=== PATIENT | male | born 1955 | race Caucasian/White ===

== ENCOUNTER → 2019-04-06 | Outpatient (CLI) | payer OTHER ==
[2016-05-13 11:07] VITALS: BP 114/57
[~2019-04-06] MED LIST: AMIT100T PO; ASPI-630 PO; CIPR500T94 PO; FLUT16SP NS; FLUT1DIS3 IH; GABA300C18 PO; IPRA15SP NS; IPRA4AER IH; META-21 PO; MONT10TA9 PO; NAPR-514 PO; OMEP40CA5 PO; PREG75CA PO; PSEU30TA27 PO; ROFL500T7 PO; TAMS0.4C2 PO; TOPI100T8 PO; TRAM1TAB4 PO
== END | disposition home or self-care (01) ==
LOC: LAB 17:24
PROVIDERS: ATTEND Internal Medicine Pulmonary Disease
DX: J20.8 Acute bronchitis due to other specified organisms (principal)
CPT/HCPCS: 87070; 87205

== ENCOUNTER 2020-04-25 01:07 | Emergency (ER) | payer OTHER ==
[~2020-04-25] VITALS: Ht 182.9 cm; Wt 128.2 kg
[~2020-04-25 01:07] MED LIST changes: +MONT10TA49 PO; -MONT10TA9 PO; +OMEP40CA45 PO; -OMEP40CA5 PO; +PREG-9 PO; -PREG75CA PO
--- NOTE | 2020-04-25 01:42 | PHYS DOC ---
Past Medical History Past Medical History: Asthma, COPD, GERD, Other Additional Past Medical Histor: prostatitis, obese, peripheral neuropathy Past Surgical History: Cholecystectomy, Other Additional Past Surgical Histo: R pneumonectomy Smoking Status: Never Smoker Alcohol Use: None Drug Use: None General Adult EDM: Chief Complaint: ABDOMINAL PAIN HPI: HPI: Patient is a 64 year old male who presents with complaint of left-sided flank pain that started earlier tonight after eating dinner. Patient states that he has been very nauseated and has tried to vomit on several occasions without success. He does indicate that he did have a bowel movement about 2 hours ago that was normal. He states that the pain feels like he either needs to throw up or he needs to move his bowels. He states that currently pain is improved somewhat and its about a 4 out of 10 but when it was at its worst, it was a 6 to a 7 out of 10. [] Review of Systems: Review of Systems: Constitutional: Denies fever or chills. [] Respiratory: Denies cough or shortness of breath. [] Cardiovascular: Denies chest pain or edema. [] GI: Complains of left-sided flank pain with nausea. Denies vomiting or diarrhea. [] Neurologic: Denies headache, focal weakness or sensory changes. [] A full 10 point review of systems has been reviewed and is otherwise negative. Heart Score: Risk Factors: Risk Factors: DM, Current or recent (<one month) smoker, HTN, HLP, family history of CAD, obesity. Risk Scores: Score 0 - 3: 2.5% MACE over next 6 weeks - Discharge Home Score 4 - 6: 20.3% MACE over next 6 weeks - Admit for Clinical Observation Score 7 - 10: 72.7% MACE over next 6 weeks - Early Invasive Strategies Allergies: Allergies: Allergies Coded Allergies Type Severity Reaction Last Updated Verified No Known Drug Allergies 08/29/15 No Physical Exam: PE: Constitutional: Well developed, well nourished, no acute distress, non-toxic appearance. [] HENT: Normocephalic, atraumatic, bilateral external ears normal, oropharynx moist, no oral exudates, nose normal. [] Eyes: PERRLA, EOMI, conjunctiva normal, no discharge. [] Neck: Normal range of motion, no tenderness, supple, no stridor. [] Cardiovascular: Regular rate and rhythm [] Lungs & Thorax: Bilateral breath sounds clear to auscultation [] Abdomen: Bowel sounds normal, soft, with tenderness to palpation in the left flank region. [] Skin: Warm, dry, no erythema, no rash. [] Extremities: No tenderness, no cyanosis, no clubbing, ROM intact. [] Neurologic: Alert and oriented X 3, no focal deficits noted. [] EKG: EKG: [] Radiology/Procedures: Radiology/Procedures: [] Impression: PROCEDURE: CT ABDOMEN PELVIS WO CONTRAST EXAM: CT ABDOMEN/PELVIS WITHOUT CONTRAST. HISTORY: Left flank pain. TECHNIQUE: Computed tomography of the abdomen and pelvis was performed without intravenous contrast. One or more of the following individualized dose reduction techniques were utilized for this examination: 1. Automated exposure control. 2. Adjustment of the mA and/or kV according to patient size. 3. Use of iterative reconstruction technique. COMPARISON: None. FINDINGS: Lung windows through the visualized portions of the bases reveal elevation of the right hemidiaphragm. Pleural thickening and a small pleural effusion are partially visualized in the right base. Right pneumonectomy changes are suspected.. Bone windows reveal no suspicious lesions. Hip osteoarthritis is severe on the left and moderate on the right. The liver is at least mildly enlarged without focal lesions by noncontrast CT. The gallbladder is surgically absent. The spleen, adrenal glands and pancreas are unremarkable without contrast. A left mid ureteral calculus at L5 measures 4 mm. There is perinephric stranding on the left without hydronephrosis. Additional bilateral renal calculi measure up to 8 mm bilaterally. There are no suspicious renal lesions without contrast. The prostate is moderately to severely enlarged at 6.6 cm. Descending colonic diverticulosis is mild. The appendix is not inflamed. There is no small bowel obstruction. A small umbilical hernia contains only fat. There are no pathologically enlarged lymph nodes. IMPRESSION: 1. 4 mm left mid ureteral calculus with left perinephric stranding. 2. Multiple additional bilateral renal calculi measure up to 8 mm. 3. Small umbilical hernia containing only fat. 4. Correlate for right pneumonectomy. Chest radiography could further evaluate if the diagnosis remains unclear. Electronically signed by: Jadon Guo MD (04/25/2020 3:41 AM) [facility] DICTATED and SIGNED BY: HUSSEIN GUO MD DATE: 04/25/20 0346 Course & Med Decision Making: Course & Med Decision Making Pertinent Labs and Imaging studies reviewed. (See chart for details) [] Dragon Disclaimer: Dragon Disclaimer: This electronic medical record was generated, in whole or in part, using a voice recognition dictation system. Departure Departure Impression: Primary Impression: Ureterolithiasis Disposition: HOME, SELF-CARE Condition: STABLE Referrals: ARISTIDES DESIR MD (PCP) Patient Instructions: Kidney Stones CIPRIANO GARVIN Jr. DO April 25, 2020 01:42
[2020-04-25] MEDS ORDERED: fentaNYL PF VIAL 100 MCG/2 ML VIAL IV PRN (01:45)
[2020-04-25] MEDS ORDERED: ONDANSETRON PF 4 MG/2 ML VIAL. IVP ONE (02:00)
[2020-04-25] MEDS ORDERED: IV NORMAL SALINE 1000ML BAG 1,000 ML IV SCH (02:00)
[2020-04-25 02:10] LABS: BILIRUBIN,URINE NEGATIVE (NEG); CLARITY,URINE CLEAR; COLOR,URINE YELLOW; NITRITE,URINE NEGATIVE (NEG); PROTEIN,URINE NEGATIVE (NEG-TRACE); UROBILINOGEN,URINE 0.2 mg/dL (0.2 mg/dL)
[2020-04-25 02:11] LABS: BASO % 0 % (0-3); EOS % 0 % (0-3); HEMATOCRIT 45.4 % (39.0-53.0); HEMOGLOBIN 14.8 g/dL (13.0-17.5); LYMPH # 0.7 x10^3/uL (1.0-4.8); LYMPH % 4 % (24-48); MEAN CORPUSCULAR HEMOGLOBIN 29 pg (25-35); MEAN CORPUSCULAR HGB CONC 33 g/dL (31-37); MEAN CORPUSCULAR VOLUME 88 fL (79-100); MONO # 0.7 x10^3/uL (0.0-1.1); MONO % 4 % (0-9); NEUT # 17.8 x10^3/uL (1.8-7.7); NEUT % 93 % (31-73); PLATELET COUNT 241 x10^3/uL (140-400); RED BLOOD COUNT 5.14 x10^6/uL (4.30-5.70); RED CELL DISTRIBUTION WIDTH 16.1 % (11.5-14.5); WHITE BLOOD COUNT 19.2 x10^3/uL (4.0-11.0)
[2020-04-25 02:20] LABS: CALCIUM 8.6 mg/dL (8.5-10.1); CREATININE 1.5 mg/dL (0.7-1.3); GFR 47.3; POTASSIUM 4.4 mmol/L (3.5-5.1)
[2020-04-25 02:23] LABS: BACTERIA,URINE FEW /HPF (0-FEW); RBC,URINE TNTC /HPF (0-2); SQUAMOUS EPITHELIAL CELL,UR FEW /LPF; TRICHOMONAS,URINE PRESENT
[2020-04-25 02:25] LABS: ALBUMIN 3.4 g/dL (3.4-5.0); ALBUMIN/GLOBULIN RATIO 0.8 (1.0-1.7); TOTAL BILIRUBIN 0.2 mg/dL (0.2-1.0); TOTAL PROTEIN 7.5 g/dL (6.4-8.2)
--- NOTE | 2020-04-25 03:44 | RAD ---
EXAM: CT ABDOMEN/PELVIS WITHOUT CONTRAST. HISTORY: Left flank pain. TECHNIQUE: Computed tomography of the abdomen and pelvis was performed without intravenous contrast. One or more of the following individualized dose reduction techniques were utilized for this examination: 1. Automated exposure control. 2. Adjustment of the mA and/or kV according to patient size. 3. Use of iterative reconstruction technique. COMPARISON: None. FINDINGS: Lung windows through the visualized portions of the bases reveal elevation of the right hemidiaphragm. Pleural thickening and a small pleural effusion are partially visualized in the right base. Right pneumonectomy changes are suspected.. Bone windows reveal no suspicious lesions. Hip osteoarthritis is severe on the left and moderate on the right. The liver is at least mildly enlarged without focal lesions by noncontrast CT. The gallbladder is surgically absent. The spleen, adrenal glands and pancreas are unremarkable without contrast. A left mid ureteral calculus at L5 measures 4 mm. There is perinephric stranding on the left without hydronephrosis. Additional bilateral renal calculi measure up to 8 mm bilaterally. There are no suspicious renal lesions without contrast. The prostate is moderately to severely enlarged at 6.6 cm. Descending colonic diverticulosis is mild. The appendix is not inflamed. There is no small bowel obstruction. A small umbilical hernia contains only fat. There are no pathologically enlarged lymph nodes. IMPRESSION: 1. 4 mm left mid ureteral calculus with left perinephric stranding. 2. Multiple additional bilateral renal calculi measure up to 8 mm. 3. Small umbilical hernia containing only fat. 4. Correlate for right pneumonectomy. Chest radiography could further evaluate if the diagnosis remains unclear. Electronically signed by: Jadon Guo MD (04/25/2020 3:41 AM) [facility]
[2020-04-25 03:53] VITALS: BP 134/65
[2020-04-25] MEDS ORDERED: ONDA4TAB12 PO (03:56)
[2020-04-25] MEDS ORDERED: OXYC1TAB19 PO (03:56)
[2020-04-25 05:26] LABS: % BANDS 15 % (0-9); % LYMPHS 1 % (24-48); % MONOS 1 % (0-10); % SEGS 83 % (35-66)
[2020-04-25 05:27] LABS: PLT ESTIMATE ADEQUATE (ADEQUATE)
== END 2020-04-25 04:00 | disposition home or self-care (01) ==
LOC: ER 01:07
DX: N20.1 Calculus of ureter (principal); K42.9 Umbilical hernia without obstruction or gangrene; K57.30 Diverticulosis of large intestine without perforation or abscess without bleeding; J44.9 Chronic obstructive pulmonary disease, unspecified; K21.9 Gastro-esophageal reflux disease without esophagitis; Z90.49 Acquired absence of other specified parts of digestive tract; E66.9 Obesity, unspecified; Z68.38 Body mass index [BMI] 38.0-38.9, adult
CPT/HCPCS: 36415; 74176; 80053; 81001; 83690; 85007; 85025; 87086; 96374; 96375; 99285; J2405; J3010; J7030

== ENCOUNTER 2020-05-21 15:38 | Emergency (ER) | payer OTHER ==
[~2020-05-21] VITALS: Ht 182.9 cm; Wt 127.2 kg
[~2020-05-21 15:38] MED LIST changes: +ONDA4TAB12 PO; +OXYC1TAB19 PO
--- NOTE | 2020-05-21 16:07 | PHYS DOC ---
Past Medical History Past Medical History: Asthma, COPD, GERD, Other Additional Past Medical Histor: prostatitis, obese, peripheral neuropathy Past Surgical History: Cholecystectomy, Other Additional Past Surgical Histo: R pneumonectomy Smoking Status: Never Smoker Alcohol Use: None Drug Use: None General Adult EDM: Chief Complaint: FLANK PAIN HPI: HPI: Patient is a 64 year old male who presents with bilateral lower abdominal pain that radiates to bilateral flank. Patient was seen in this emergency department on April 25 and diagnosed with a kidney stone. He was taking [place] for pain relief and he was taking Zofran for nausea. He reports that yesterday he was having difficulty urinating and felt like he could not empty his bladder completely, he is also reporting urinary frequency with some nausea and vomiting. He reports that his abdomen feels hard. He is rating his pain 2 out of 10. He is reporting some constipation and some abdominal bloating. He reports that he had a bowel movement last night but that he felt like he could not empty his bowel completely. Review of Systems: Review of Systems: GI: Bilateral lower abdominal pain, nausea, vomiting, denies bloody stools or diarrhea, + Constipation. [] : dysuria. Bilateral Flank. [] Heart Score: Risk Factors: Risk Factors: DM, Current or recent (<one month) smoker, HTN, HLP, family history of CAD, obesity. Risk Scores: Score 0 - 3: 2.5% MACE over next 6 weeks - Discharge Home Score 4 - 6: 20.3% MACE over next 6 weeks - Admit for Clinical Observation Score 7 - 10: 72.7% MACE over next 6 weeks - Early Invasive Strategies Allergies: Allergies: Allergies Coded Allergies Type Severity Reaction Last Updated Verified No Known Drug Allergies 08/29/15 No Physical Exam: PE: Constitutional: Well developed, well nourished, no acute distress, non-toxic appearance. [] HENT: Normocephalic, atraumatic, bilateral external ears normal, oropharynx moist, no oral exudates, nose normal. [] Eyes: PERRLA, EOMI, conjunctiva normal, no discharge. [] Neck: Normal range of motion, no tenderness, supple, no stridor. [] Cardiovascular:Heart rate regular rhythm, no murmur [] Lungs & Thorax: Bilateral breath sounds clear to auscultation [] Abdomen: Bowel sounds normal, tight, no tenderness, no masses, no pulsatile masses. [] Skin: Warm, dry, no erythema, no rash. [] Back: No tenderness, Left CVA tenderness. [] Extremities: No tenderness, no cyanosis, no clubbing, ROM intact, no edema. [] Neurologic: Alert and oriented X 3, normal motor function, normal sensory function, no focal deficits noted. [] Psychologic: Affect normal, judgement normal, mood normal. [] EKG: EKG: [] Radiology/Procedures: Radiology/Procedures: [] Impression: [facility] [address] [place] [address] IMAGING REPORT Signed PATIENT: JERRY HANDLEY ACCOUNT: [id number] : 1955 LOCATION: ER AGE: 64 SEX: M EXAM STATUS: REG ER ORD. PHYSICIAN: MIREYA ROBLES APRN REASON: bilateral flank and abominal pain PROCEDURE: CT ABDOMEN PELVIS WO CONTRAST EXAM: CT Abdomen and Pelvis without IV contrast CLINICAL HISTORY: bilateral flank and abominal pain COMPARISON: 04/25/2020, 05/07/2016 TECHNIQUE: Helical CT of the abdomen and pelvis was performed without the administration of IV contrast. Axial, coronal and sagittal reformatted images were generated. ---PQRS compliance statement - One or more of the following individualized dose reduction techniques were utilized for this study: 1. Automated exposure control 2. Adjustment of the mA and/or kV according to patient size 3. Use of iterative reconstruction technique--- FINDINGS: Lack of intravenous contrast limits evaluation of solid organs, vasculature, and lymph nodes. Lower chest: There is been a right pneumonectomy with associated pleural thickening. Linear opacities left lower lobe likely scarring/atelectasis. Abdomen and pelvis: Liver and biliary system: No focal liver lesion. Liver is enlarged measuring 21.5 cm in length. Accounting for postcholecystectomy change, no biliary ductal dilatation. Spleen: Unremarkable Pancreas: Unremarkable Adrenal glands: Unremarkable Kidneys: Mild left hydronephrosis and hydroureter with a 6 mm calculus at the left ureterovesicular junction. Additional bilateral nonobstructing renal calculi are seen, for example in the lower pole the left kidney is a 9 mm calculus. Perinephric infiltration about the left kidney. Lymph nodes/retroperitoneum: No abdominal or pelvic lymphadenopathy. Vessels: Aorta is normal in caliber with intermittent atherosclerotic calcifications. Bowel/Peritoneal cavity: Moderate colonic stool content is seen. Appendix is normal. No small or large bowel dilatation. A few colonic diverticula are seen. No evidence for acute diverticulitis. No abdominal or pelvic ascites. Prostate measures 6.4 cm in transverse dimension. Abdominal wall: Small fat-containing periumbilical hernia is seen. Bladder: Bladder is decompressed. Bones: Degenerative changes of the lower lumbar spine, SI joints and hips are seen. IMPRESSION: 1. An obstructing 6 mm calculus is seen within the left ureterovesicular junction with mild left hydronephrosis and hydroureter. 2. Multiple bilateral nonobstructing renal calculi are also seen. 3. Small fat-containing periumbilical hernia. 4. Hepatomegaly. Electronically signed by: Alan Briscoe MD (05/21/2020 4:51 PM) [facility] DICTATED and SIGNED BY: ALAN BRISCOE MD DATE: 05/21/201650 Course & Med Decision Making: Course & Med Decision Making Pertinent Labs and Imaging studies reviewed. (See chart for details) Generalized abdominal distention and tightness but felt more so on the right side of the abdomen that I did on the left side abdomen. No abdominal tenderness. CVA tenderness. Alert and oriented. Ambulatory with a steady gait. Speaks in full clear sentences. No extremity edema. Patient is told that he needs to be transferred to a facility with Urology due to the size of the stone and out patient failure and his increased discomfort. Patient admitted to [facility] by Urologist Dr Jose F Noriega Disclaimer: Leann Disclaimer: This electronic medical record was generated, in whole or in part, using a voice recognition dictation system. Departure Departure Impression: Primary Impression: Kidney stone on left side Disposition: 05 TRANSFER OTHER ([facility]) Condition: STABLE Referrals: ARISTIDES DESIR MD (PCP) Justicifation of Admission Dx: Justifications for Admission: Justification of Admission Dx: N/A MIREYA ROBLES APRN May 21, 2020 16:07
[2020-05-21] MEDS ORDERED: IV NORMAL SALINE 1000ML BAG 1,000 ML IV SCH (16:17)
[2020-05-21 16:36] LABS: BASO % 0 % (0-3); BILIRUBIN,URINE NEGATIVE (NEG); CLARITY,URINE CLEAR; COLOR,URINE YELLOW; EOS # 0.2 x10^3/uL (0.0-0.7); EOS % 1 % (0-3); HEMATOCRIT 45.8 % (39.0-53.0); HEMOGLOBIN 15.2 g/dL (13.0-17.5); LYMPH # 1.1 x10^3/uL (1.0-4.8); LYMPH % 8 % (24-48); MEAN CORPUSCULAR HEMOGLOBIN 29 pg (25-35); MEAN CORPUSCULAR HGB CONC 33 g/dL (31-37); MEAN CORPUSCULAR VOLUME 88 fL (79-100); MONO # 1.2 x10^3/uL (0.0-1.1); MONO % 9 % (0-9); NEUT # 11.5 x10^3/uL (1.8-7.7); NEUT % 82 % (31-73); NITRITE,URINE NEGATIVE (NEG); PLATELET COUNT 229 x10^3/uL (140-400); PROTEIN,URINE NEGATIVE (NEG-TRACE); RED BLOOD COUNT 5.19 x10^6/uL (4.30-5.70); RED CELL DISTRIBUTION WIDTH 15.8 % (11.5-14.5); UROBILINOGEN,URINE 0.2 mg/dL (0.2 mg/dL)
[2020-05-21 16:44] LABS: BACTERIA,URINE 0 /HPF (0-FEW); CALCIUM 8.9 mg/dL (8.5-10.1); CREATININE 1.8 mg/dL (0.7-1.3); GFR 38.3; HYALINE CASTS, URINE FEW /HPF; POTASSIUM 4.7 mmol/L (3.5-5.1); RBC,URINE 20-40 /HPF (0-2); SQUAMOUS EPITHELIAL CELL,UR FEW /LPF
[2020-05-21 16:46] LABS: PROTHROMBIN TIME PATIENT 12.5 SEC (11.7-14.0)
[2020-05-21 16:49] LABS: ALBUMIN 3.6 g/dL (3.4-5.0); ALBUMIN/GLOBULIN RATIO 0.9 (1.0-1.7); TOTAL BILIRUBIN 0.5 mg/dL (0.2-1.0); TOTAL PROTEIN 7.7 g/dL (6.4-8.2)
--- NOTE | 2020-05-21 16:54 | RAD ---
EXAM: CT Abdomen and Pelvis without IV contrast CLINICAL HISTORY: bilateral flank and abominal pain COMPARISON: 04/25/2020, 05/07/2016 TECHNIQUE: Helical CT of the abdomen and pelvis was performed without the administration of IV contrast. Axial, coronal and sagittal reformatted images were generated. ---PQRS compliance statement - One or more of the following individualized dose reduction techniques were utilized for this study: 1. Automated exposure control 2. Adjustment of the mA and/or kV according to patient size 3. Use of iterative reconstruction technique--- FINDINGS: Lack of intravenous contrast limits evaluation of solid organs, vasculature, and lymph nodes. Lower chest: There is been a right pneumonectomy with associated pleural thickening. Linear opacities left lower lobe likely scarring/atelectasis. Abdomen and pelvis: Liver and biliary system: No focal liver lesion. Liver is enlarged measuring 21.5 cm in length. Accounting for postcholecystectomy change, no biliary ductal dilatation. Spleen: Unremarkable Pancreas: Unremarkable Adrenal glands: Unremarkable Kidneys: Mild left hydronephrosis and hydroureter with a 6 mm calculus at the left ureterovesicular junction. Additional bilateral nonobstructing renal calculi are seen, for example in the lower pole the left kidney is a 9 mm calculus. Perinephric infiltration about the left kidney. Lymph nodes/retroperitoneum: No abdominal or pelvic lymphadenopathy. Vessels: Aorta is normal in caliber with intermittent atherosclerotic calcifications. Bowel/Peritoneal cavity: Moderate colonic stool content is seen. Appendix is normal. No small or large bowel dilatation. A few colonic diverticula are seen. No evidence for acute diverticulitis. No abdominal or pelvic ascites. Prostate measures 6.4 cm in transverse dimension. Abdominal wall: Small fat-containing periumbilical hernia is seen. Bladder: Bladder is decompressed. Bones: Degenerative changes of the lower lumbar spine, SI joints and hips are seen. IMPRESSION: 1. An obstructing 6 mm calculus is seen within the left ureterovesicular junction with mild left hydronephrosis and hydroureter. 2. Multiple bilateral nonobstructing renal calculi are also seen. 3. Small fat-containing periumbilical hernia. 4. Hepatomegaly. Electronically signed by: Alan Ray MD (05/21/2020 4:51 PM) [facility]
[2020-05-21] MEDS ORDERED: IPRATRPIUM/ALBUTEROL 0.5/2.5MG 3 ML NEBU. NEB ONE (17:00)
[2020-05-21] MEDS ORDERED: ONDANSETRON PF 4 MG/2 ML VIAL. IVP ONE (17:00)
[2020-05-21] MEDS ORDERED: KETOROLAC 30 MG/ML VIAL. IVP ONE (18:30)
[2020-05-21] MEDS ORDERED: fentaNYL PF VIAL 100 MCG/2 ML VIAL IVP ONE (18:30)
[2020-05-21 20:06] VITALS: BP 112/56
== END 2020-05-21 20:47 | disposition short-term general hospital (02) ==
LOC: ER 15:38
DX: N20.0 Calculus of kidney (principal); R11.2 Nausea with vomiting, unspecified; K42.9 Umbilical hernia without obstruction or gangrene; R16.0 Hepatomegaly, not elsewhere classified; K21.9 Gastro-esophageal reflux disease without esophagitis; J44.9 Chronic obstructive pulmonary disease, unspecified; Z90.49 Acquired absence of other specified parts of digestive tract; E66.9 Obesity, unspecified; Z68.38 Body mass index [BMI] 38.0-38.9, adult
CPT/HCPCS: 36415; 74176; 80053; 81001; 83690; 85025; 85610; 87086; 94640; 96361; 96374; 96375; 99285; J1885; J2405; J3010; J7030